=== PATIENT | male | born 1955 | race American Indian/Alaskan Native ===

== ENCOUNTER 2018-07-13 09:17 | Emergency (ER) | payer OTHER ==
[2018-07-13 09:22] VITALS: BP 160/84
[2018-07-13] MEDS ORDERED: TORADOL IM ONE (09:43)
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
== END 2018-07-13 12:02 | disposition home or self-care (01) ==
LOC: ED 09:17
DX: M47.896 Other spondylosis, lumbar region (principal); M47.894 Other spondylosis, thoracic region; I10 Essential (primary) hypertension; E11.9 Type 2 diabetes mellitus without complications; F17.200 Nicotine dependence, unspecified, uncomplicated; Z88.8 Allergy status to other drugs, medicaments and biological substances; V49.49XA Driver injured in collision with other motor vehicles in traffic accident, initial encounter; Y93.89 Activity, other specified; Y92.488 Other paved roadways as the place of occurrence of the external cause; Y99.8 Other external cause status
CPT/HCPCS: 70450; 72072; 72100; 96372; 99284; J1885